=== PATIENT | male | born 1945 | race Caucasian/White ===

== ENCOUNTER 2025-06-09 15:01 | Emergency (ER) | payer MEDICARE ==
[~2025-06-09 15:01] MED LIST: Iopamidol-370 76% 500 ML MDV (1 ML CHARGE) ONE
[2025-06-09 15:46] LABS: #Basophils 0.08 10x3/uL (0.0-0.2); #Eosinophils 0.20 10x3/uL (0.0-0.7); #Monocytes 0.83 10x3/uL (0.11-0.59); #Neutrophils 6.13 10x3/uL (1.40-6.50); %Basophils 0.7 % (0.0-1.0); %Eosinophils 1.8 % (0.0-10.0); %Lymphocytes 33.8 % (21.0-51.0); %Monocytes 7.6 % (0.0-10.0); %Neutrophils 55.7 % (42.0-75.0); Hematocrit 42.6 % (42.0-52.0); Hemoglobin 14.2 g/dL (14.0-18.0); Mean Corpuscular Hemoglobin 31.0 pg (27.0-31.0); Mean Corpuscular Volume 93.0 fL (78.0-98.0); Platelet Count 228 10x3/uL (130-400); Red Blood Cell (RBC) Count 4.58 mill/uL (4.70-6.10); White Blood Cell (WBC) Count 10.99 10x3/uL (4.8-10.8)
[2025-06-09 16:15] LABS: ALT (SGPT) 11 U/L (Less than 45); AST (SGOT) 27 U/L (11-34); Albumin 3.7 g/dL (3.1-4.5); Alkaline Phosphatase 62 U/L (40-110); Anion Gap 14 mmol/L (10-20); BUN (Urea Nitrogen) 17 mg/dL (8.4-25.7); Bilirubin, Total 0.5 mg/dL (0.3-1.2); Calc. Creatinine Clearance 0 mL/min (70-130); Calcium 9.4 mg/dL (7.8-10.44); Carbon Dioxide 25 mmol/L (23-31); Chloride 103 mmol/L (98-107); Globulin 3.1 g/dL (2.4-3.5); Glucose 158 mg/dL (83-110); Potassium 4.7 mmol/L (3.5-5.1); Sodium 137 mmol/L (136-145)
[2025-06-09] MEDS ORDERED: Acetaminophen 500 MG TAB ONE (19:27)
[2025-06-09] MEDS ORDERED: Metoclopramide HCl 10 MG (2 mL) VIAL ONE (19:27)
[2025-06-09] MEDS ORDERED: diphenhydrAMINE 50 MG/ML VIAL ONE (19:27)
[2025-06-09] MEDS ORDERED: Lisinopril 20 MG TAB ONE (19:27)
== END 2025-06-09 23:49 | disposition short-term general hospital (02) ==
LOC: ERS 15:01
DX: R47.1 Dysarthria and anarthria (principal); R47.01 Aphasia; R20.2 Paresthesia of skin; E11.9 Type 2 diabetes mellitus without complications; I25.2 Old myocardial infarction; I10 Essential (primary) hypertension
CPT/HCPCS: 70450; 70496; 70498; 71045; 80053; 82962; 84484; 85025; 93005; J1200; J2765; Q9967; 36415; 36416; 96365; 96366; 96375